=== PATIENT | female | born 1965 ===

== ENCOUNTER 2024-01-13 06:52 | Day surgery (SDC) | payer OTHER ==
[2024-01-13] MEDS ORDERED: CEFAZOLIN SODIUM 1,000 MG VIAL ONE (09:18)
[2024-01-13] MEDS ORDERED: POVIDONE-IODINE 118 ML BOTT TOP ONE ×2 (10:29→11:45)
[2024-01-13] MEDS ORDERED: CEFAZOLIN SODIUM 2,000 MG in 0.9 % SODIUM CHLORIDE 100 ML IV ONE (11:45)
== END 2024-01-13 16:25 | disposition home or self-care (01) ==
LOC: CIR.AMB 06:52
PROVIDERS: ATTEND Obstetrics & Gynecology
DX: N84.0 Polyp of corpus uteri (principal); N92.0 Excessive and frequent menstruation with regular cycle